=== PATIENT | male | born 1985 | race Caucasian/White ===

== ENCOUNTER 2016-11-17 16:09 | Emergency (ER) | payer MEDICARE, MEDICAID ==
[~2016-11-17] VITALS: Ht 175.3 cm; Wt 63.5 kg
[2016-11-17 16:20] VITALS: BP 120/78
[2016-11-17 16:30] VITALS: BP 120/78
--- NOTE | 2016-11-17 16:52 | Emergency Room Report ---
History of Present Illness General Chief Complaint: General Complaint Source: Patient, EMS Present Illness HPI This patient is brought in by EMS. He did methamphetamine feels anxious. Further discussion with him and he is requesting a "shot" for a possible withdraw from other drugs. Initially when he came in he was hyperventilating. He didn't want to wear a mask so he was told to stop hyperventilating and on command he did. Allergies: Coded Allergies: No Known Allergies (Unverified , 11/17/16) Patient History Past Medical History: see triage record Social History: Reports: drug use Reviewed Nursing Documentation: PMH: Agreed, PSxH: Agreed Nursing Documentation-PM Past Medical History: No History, Except For History Of Psychiatric Problem: Yes - Bipolar Review of Systems All Other Systems: negative except mentioned in HPI Physical Exam Vital Signs Date Time Temp Pulse Resp B/P Pulse Ox O2 Delivery O2 Flow Rate FiO2 11/17/16 16:03 97.3 125 36 120/78 100 Room Air Sp02 EP Interpretation: reviewed, normal General Appearance: no apparent distress, alert, GCS 15, non-toxic Head: normocephalic, atraumatic Eyes: bilateral eye PERRL, bilateral eye normal inspection ENT: hearing grossly normal, normal pharynx, no angioedema, normal voice Neck: full range of motion, supple/symm/no masses Respiratory: no respiratory distress, no retraction, no accessory muscle use, speaking full sentences Cardiovascular #1: tachycardia Gastrointestinal: normal inspection, non-distended Rectal: deferred Musculoskeletal: back normal, gait/station normal, normal range of motion Neurologic: alert, oriented x3, responsive, motor strength/tone normal, sensory intact, speech normal Psychiatric: judgement/insight normal, memory normal, mood/affect normal, no suicidal/homicidal ideation Skin: normal color, no rash, warm/dry, well hydrated Medical Decision Making Diagnostic Impression: Primary Impression: Amphetamine abuse ER Course This patient presented with hyperventilation that was fake. He was seeking benzodiazepine or narcotic medications. He became very upset when he was told that he would not be receiving any "shots." The patient refused to give a urinalysis. Patient last and told the RN caring for him that he was going to come back and shoot everybody in the ER and kill everyone and he eloped. [place] [employer] was called to file a report. Last Vital Signs Date Time Temp Pulse Resp B/P Pulse Ox O2 Delivery O2 Flow Rate FiO2 11/17/16 16:03 97.3 125 36 120/78 100 Room Air Disposition: ELOPED Condition: Stable RODRIGO PATEL D.O. Nov 17, 2016 16:52
== END 2016-11-17 19:23 | disposition left against medical advice (07) ==
LOC: EDBD 16:09 → EMR 16:44
DX: F15.10 Other stimulant abuse, uncomplicated (principal); R00.0 Tachycardia, unspecified
CPT/HCPCS: 80300; 99284